=== PATIENT | male | born 1970 | race Caucasian/White ===

== ENCOUNTER → 2019-01-12 14:04 | Outpatient (CLI) | payer OTHER, SELFPAY ==
[2019-01-12 13:15] VITALS: BMI 28.9
--- NOTE | 2019-01-12 14:09 | RAD_ITS ---
STUDY: X-RAY - RIGHT KNEE REASON FOR EXAM: Male, 48 years old. TECHNIQUE: view(s) of the knee. COMPARISON: None. FINDINGS: Normal visualized distal femur. Normal visualized proximal tibia and fibula. Normal proximal tibiofibular articulation. Normal medial femorotibial compartment. Normal lateral femorotibial compartment. Normal patellofemoral articulation. The soft tissue structures are unremarkable. RAD/Knee 4 or More Views IMPRESSION: Normal x-ray examination of the knee. Electronically Signed: Ciro Nelson, at 15:58 EDT Tel , Service support ,
== END ==
PROVIDERS: Family Provider Internal Medicine; PCP Internal Medicine; Referring Provider Nurse Practitioner Family; Visit Provider Nurse Practitioner Family
DX: M25.561 Pain in right knee (principal)
CPT/HCPCS: 73564

== ENCOUNTER → 2019-04-21 11:40 | Outpatient (CLI) | payer OTHER, SELFPAY ==
[2019-04-21 11:15] VITALS: BMI 28.9
[2019-04-21 14:03] LABS: Absolute Lymphocyte Count 1.96 X10^3/uL (0.83-4.51); Absolute Neutrophil Count 4.6 X10^3/uL (2.0-7.7); Basophil# 0.04 X10^3/uL; Basophil% 0.5 % (0-1); Eosinophil# 0.08 X10^3/uL; Eosinophils% 1.1 % (0-5); Hematocrit 46.3 % (40-54); Hemoglobin 16.1 g/dL (13.0-16.5); Lymphocyte # 1.96 X10^3/ul (4.0); Lymphocyte % 26.3 % (19-41); Mean Corp Hgb Conc 34.8 g/dL (32-36); Mean Corpuscular Hgb 32.6 pg (27.0-32.0); Mean Corpuscular Volume 93.7 fL (80-94); Mean Platelet Vol. 9.7 fl (6.2-12.0); Monocyte# 0.76 X10^3/uL; Monocyte% 10.2 % (0-10); NRBC Flagged by Analyzer 0 % (0-5); Neutrophil % 61.6 % (47-70); Platelet Count 341 K/mm3 (150-450); RBC Distribution Width CV 12.6 % (11.6-14.6); RBC Distribution Width SD 43.5 fl (35.1-43.9); Red Blood Count 4.94 M/mm3 (4.6-6.2); White Blood Count 7.5 K/mm3 (4.4-11.0)
[2019-04-21 14:23] LABS: ALB/GLOB Ratio 1.2 RATIO (0.9-2.4); AST(SGOT) 30 U/L (15-37); Alanine Aminotransfer ALT/SGPT 43 U/L (16-61); Albumin, Serum 4.1 g/dL (3.2-5.0); Alkaline Phosphatase 70 U/L (45-117); Anion Gap 8 (5-15); BUN 8 mg/dL (7-18); BUN/Creat Ratio 9.4 RATIO (10-20); Calcium,Total 9.3 mg/dL (8.5-10.1); Chloride 104 mmol/L (98-107); Cholesterol 241 mg/dL (200); Creatinine, Serum 0.85 mg/dL (0.70-1.30); EST Glomerular Filtration Rate 103 mL/min (>60); Est Glom Filt Rate - Afr Amer 124 mL/min (>60); Globulin 3.3 g/dL (2.2-4.2); Glucose 105 mg/dL (74-106); High Density Lipoprotein 29 mg/dL; Protein, Total 7.4 g/dL (6.4-8.2); Sodium Level 140 mmol/L (136-145); Triglycerides 737 mg/dL
== END ==
PROVIDERS: Family Provider Internal Medicine; PCP Internal Medicine; Visit Provider Internal Medicine
DX: E78.5 Hyperlipidemia, unspecified (principal); I10 Essential (primary) hypertension
CPT/HCPCS: 36415; 80053; 80061; 85025

== ENCOUNTER → 2019-08-09 10:23 | Outpatient (CLI) | payer OTHER, SELFPAY ==
[2019-07-26 15:41] VITALS: BMI 28.9
[2019-08-09 12:38] LABS: AST(SGOT) 24 U/L (15-37); Alanine Aminotransfer ALT/SGPT 40 U/L (16-61); Albumin, Serum 3.9 g/dL (3.2-5.0); Alkaline Phosphatase 78 U/L (45-117); Anion Gap 7 (5-15); BUN 14 mg/dL (7-18); Calcium,Total 9.6 mg/dL (8.5-10.1); Chloride 109 mmol/L (98-107); Cholesterol 200 mg/dL (200); EST Glomerular Filtration Rate 85 mL/min (>60); Est Glom Filt Rate - Afr Amer 103 mL/min (>60); Globulin 3.8 g/dL (2.2-4.2); Glucose 108 mg/dL (74-106); High Density Lipoprotein 34 mg/dL; Potassium 3.6 mmol/L (3.5-5.1); Protein, Total 7.7 g/dL (6.4-8.2); Sodium Level 143 mmol/L (136-145); Thyroid Stim Hormone (TSH) 2.27 uIU/mL (0.358-3.74); Triglycerides 408 mg/dL
== END ==
PROVIDERS: PCP Internal Medicine; Visit Provider Nurse Practitioner Family
DX: I10 Essential (primary) hypertension (principal); E78.00 Pure hypercholesterolemia, unspecified; E78.1 Pure hyperglyceridemia; F41.1 Generalized anxiety disorder
CPT/HCPCS: 36415; 80053; 80061; 84443

== ENCOUNTER → 2020-03-28 11:29 | Outpatient (CLI) | payer OTHER, SELFPAY ==
[2020-03-28 10:52] VITALS: BMI 28.9
[2020-03-28 15:42] LABS: Hemoglobin A1c 5.3 % (3.8-5.6)
[2020-03-28 16:04] LABS: ALB/GLOB Ratio 1.1 RATIO (0.9-2.4); AST(SGOT) 44 U/L (15-37); Alanine Aminotransfer ALT/SGPT 38 U/L (16-61); Albumin, Serum 4.2 g/dL (3.2-5.0); Alkaline Phosphatase 79 U/L (45-117); Anion Gap 7 (5-15); BUN 11 mg/dL (7-18); BUN/Creat Ratio 10.2 RATIO (10-20); Calcium,Total 9.6 mg/dL (8.5-10.1); Chloride 100 mmol/L (98-107); Cholesterol 195 mg/dL (200); Creatinine, Serum 1.08 mg/dL (0.70-1.30); EST Glomerular Filtration Rate 77 mL/min (>60); Est Glom Filt Rate - Afr Amer 94 mL/min (>60); Globulin 3.9 g/dL (2.2-4.2); Glucose 94 mg/dL (74-106); High Density Lipoprotein 37 mg/dL; Potassium 3.7 mmol/L (3.5-5.1); Protein, Total 8.1 g/dL (6.4-8.2); Sodium Level 137 mmol/L (136-145); T4 Free Direct 1.07 ng/dL (0.76-1.46); Thyroid Stim Hormone (TSH) 1.64 uIU/mL (0.358-3.74); Triglycerides 530 mg/dL
== END ==
PROVIDERS: PCP Internal Medicine; Referring Provider Nurse Practitioner Family; Visit Provider Nurse Practitioner Family
DX: E78.5 Hyperlipidemia, unspecified (principal); R63.5 Abnormal weight gain
CPT/HCPCS: 36415; 80053; 80061; 83036; 84439; 84443

== ENCOUNTER → 2020-06-27 10:57 | Outpatient (CLI) | payer OTHER, SELFPAY ==
[2020-06-27 10:42] VITALS: BMI 26.7
[2020-06-27 13:07] LABS: Cholesterol 98 mg/dL (200); High Density Lipoprotein 28 mg/dL; Triglycerides 429 mg/dL
== END ==
PROVIDERS: PCP Internal Medicine; Referring Provider Nurse Practitioner Family; Visit Provider Nurse Practitioner Family
DX: E78.5 Hyperlipidemia, unspecified (principal)
CPT/HCPCS: 36415; 80061

== ENCOUNTER → 2021-02-26 13:35 | Outpatient (CLI) | payer OTHER, SELFPAY ==
[2021-01-10 11:08] VITALS: BMI 27.6
[2021-02-26 15:15] LABS: Absolute Lymphocyte Count 2.17 X10^3/uL (0.83-4.51); Absolute Neutrophil Count 5.7 X10^3/uL (2.0-7.7); Basophil# 0.05 X10^3/uL; Basophil% 0.5 % (0-1); Eosinophil# 0.11 X10^3/uL; Eosinophils% 1.2 % (0-5); Hematocrit 39.7 % (40-54); Hemoglobin 13.9 g/dL (13.0-16.5); Lymphocyte # 2.17 X10^3/ul (0.83-4.51); Lymphocyte % 23.3 % (19-41); Mean Corpuscular Hgb 32.1 pg (27.0-32.0); Mean Corpuscular Volume 91.7 fL (80-94); Mean Platelet Vol. 9.6 fl (6.2-12.0); Monocyte# 1.24 X10^3/uL; Monocyte% 13.3 % (0-10); NRBC Flagged by Analyzer 0 % (0-5); Neutrophil # 5.66 X10^3/uL (2.7-7.7); Neutrophil % 60.7 % (47-70); Platelet Count 385 K/mm3 (150-450); RBC Distribution Width CV 11.9 % (11.6-14.6); RBC Distribution Width SD 39.8 fl (35.1-43.9); Red Blood Count 4.33 M/mm3 (4.6-6.2); White Blood Count 9.3 K/mm3 (4.4-11.0)
[2021-02-26 15:51] LABS: ALB/GLOB Ratio 1.1 RATIO (0.9-2.4); AST(SGOT) 30 U/L (15-37); Alanine Aminotransfer ALT/SGPT 32 U/L (16-61); Albumin, Serum 4.1 g/dL (3.2-5.0); Alkaline Phosphatase 45 U/L (45-117); Anion Gap 5 (5-15); BUN 18 mg/dL (7-18); BUN/Creat Ratio 9.9 RATIO (10-20); Calcium,Total 9.6 mg/dL (8.5-10.1); Chloride 98 mmol/L (98-107); Cholesterol 185 mg/dL (200); Creatinine, Serum 1.81 mg/dL (0.70-1.30); EST Glomerular Filtration Rate 43 mL/min (>60); Est Glom Filt Rate - Afr Amer 51 mL/min (>60); Globulin 3.9 g/dL (2.2-4.2); Glucose 97 mg/dL (74-106); High Density Lipoprotein 30 mg/dL; Potassium 3.7 mmol/L (3.5-5.1); Sodium Level 135 mmol/L (136-145); Thyroid Stim Hormone (TSH) 1.52 uIU/mL (0.358-3.74); Triglycerides 525 mg/dL
[2021-03-06 12:08] LABS: Testosterone, Free 12.86 ng/dL (5.00-21.00)
[2021-03-07 12:49] LABS: Testosterone, % Free 2.63 % (1.50-4.20); Testosterone, Total 489 ng/dL (264-916)
== END ==
PROVIDERS: PCP Internal Medicine; Referring Provider Nurse Practitioner Family; Visit Provider Nurse Practitioner Family
DX: I10 Essential (primary) hypertension (principal); E78.00 Pure hypercholesterolemia, unspecified; M10.9 Gout, unspecified; F41.1 Generalized anxiety disorder; R79.89 Other specified abnormal findings of blood chemistry
CPT/HCPCS: 36415; 80053; 80061; 84402; 84403; 84443; 85025

== ENCOUNTER 2022-04-02 12:35 | Inpatient (IN) | payer OTHER, SELFPAY ==
[2022-04-02] VITALS (30 sets, daily range): BP systolic 64–140; BP diastolic 13–106; PULSE 20–71; RESP 14–31; TEMP 35.4–36; O2SAT 82–98; BMI 30.6; BMI 30.1
[2022-04-02] MEDS: Atropine Sulfate 1 MG/10 ML Syringe IV (12:40)
--- NOTE | 2022-04-02 12:43 | ED.RN ---
Addendum entered by Kimberli Gross 04/02/22 14:10: 1242 1MG EPINEPHRINE IVP GIVEN BY Gianna ASHER RN THROUGH LEFT WRIST IV. Original Note: PT ARRIVES TO ED WITH BRADYCARDIA IN THE 30'S PER EMS. PT MOVED TO BED. PLACED ON FIELD OPERATIONS TECHNICIAN AND OXYGEN VIA NASAL CANNULA. 1240 20g IV PLACED IN LEFT WRIST. 1MG ATROPINE GIVEN PER S. LISA ONTIVEROS. DR. GOINS AT BEDSIDE. CALLS FOR 1MG EPI IV. EPI GIVEN AT 1242 THROUGH LEFT WRIST BY Gianna ASHER RN. HR IMPROVED TO 59. PT A+OX4. PT C/O DIZZINESS AND LIGHTHEADEDNESS. 20G IV INSERTED BY Jarvis WESLEY IN RIGHT WRIST. BLOOD DRAWN. EKG ESTABLISHED.
--- NOTE | 2022-04-02 12:44 | EKG12_ITS ---
Test Reason : Blood Pressure : / mmHG Vent. Rate : 041 BPM Atrial Rate : 041 BPM P-R Int : 000 ms QRS Dur : 120 ms QT Int : 492 ms P-R-T Axes : 000 067 013 degrees QTc Int : 405 ms Complete heart block 3rd degree Right bundle branch block Abnormal ECG Confirmed by STEPHANIE SAWYER, MARU ([id number]), editor in chief ISADORA MUNOZ ([id number]) on 04/04/2022 9:50:31 AM Referred By: Confirmed By:MARU BROWN MD
--- NOTE | 2022-04-02 12:54 | EKG12_ITS ---
Test Reason : Blood Pressure : / mmHG Vent. Rate : 020 BPM Atrial Rate : 000 BPM P-R Int : 000 ms QRS Dur : 122 ms QT Int : 604 ms P-R-T Axes : 000 059 022 degrees QTc Int : 348 ms Idioventricular rhythm Right bundle branch block Abnormal ECG Confirmed by STEPHANIE SAWYER, MARU ([id number]), acquisition editor ISADORA MUNOZ ([id number]) on 04/04/2022 9:48:11 AM Referred By: Confirmed By:MARU BROWN MD
--- NOTE | 2022-04-02 12:57 | NURSING ---
NO OLD EKGS
--- NOTE | 2022-04-02 13:00 | RAD_ITS ---
STUDY: X-RAY CHEST REASON FOR EXAM: Male, 51 years old. Chest pain. Dizziness and lethargy. TECHNIQUE: Single AP portable view of the chest. COMPARISON: None. FINDINGS: EKG electrodes are seen. Electronic pads are seen overlying the right hemithorax. The lungs are clear and expanded. There is no demonstrated pleural abnormality. There is borderline cardiomegaly. Normal mediastinum and yosvany. Normal visualized pulmonary arteries. Normal visualized aortic arch and descending thoracic aorta. Normal visualized thoracic spine. Normal visualized ribs, clavicles, and shoulders. There is no demonstrated abnormality of the visualized soft tissue structures of the upper abdomen. RAD/Chest 1 View (Portable) IMPRESSION: Borderline cardiomegaly. The lungs are clear. Electronically Signed: Kevin Ledesma MD at 13:17 EDT ,
--- NOTE | 2022-04-02 13:08 | ED.RN ---
DR. BROWN AT BEDSIDE CALLS FOR DOPAMINE INFUSION, AND TRANSCUTANEOUS PACING. MONTOR ATTACHED TO PT CHEST ON ARRIVAL TO ED. RATE AT 60 BPM. NO CAPTURE AT 10 MILLIAMPS, DOPAMINE INFUSION INITIATED AT 1311AT 5MCG.
[2022-04-02] MEDS: DOPamine IV 800 MG/250 ML IV.SOLN. 8.8 MG CONT INF (13:11)
[2022-04-02] MEDS: fentaNYL 100 MCG/2 ML Ampul 50 MCG IV (13:17)
--- NOTE | 2022-04-02 13:19 | ED.RN ---
PT AT 25MILLIAMPS TRANSCUTANEOUS PACING WITH CAPTURE. HR 59
--- NOTE | 2022-04-02 13:22 | NURSING ---
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
--- NOTE | 2022-04-02 13:30 | NURSING ---
ICU 2
[2022-04-02 13:44] LABS: Absolute Lymphocyte Count 4.47 X10^3/uL (0.83-4.51); Absolute Neutrophil Count 9.3 X10^3/uL (2.0-7.7); Basophil% 0.6 % (0-1); Eosinophil# 0.15 X10^3/uL; Hematocrit 44.6 % (40-54); Hemoglobin 15.7 g/dL (13.0-16.5); Lymphocyte # 4.47 X10^3/ul (0.83-4.51); Lymphocyte % 28.9 % (19-41); Mean Corp Hgb Conc 35.2 g/dL (32-36); Mean Corpuscular Hgb 33.6 pg (27.0-32.0); Mean Corpuscular Volume 95.5 fL (80-94); Mean Platelet Vol. 10.2 fl (6.2-12.0); Monocyte# 1.38 X10^3/uL; Monocyte% 8.9 % (0-10); NRBC Flagged by Analyzer 0 % (0-5); Neutrophil # 9.31 X10^3/uL (2.7-7.7); Neutrophil % 60.1 % (47-70); Platelet Count 348 K/mm3 (150-450); RBC Distribution Width CV 13.2 % (11.6-14.6); RBC Distribution Width SD 46.5 fl (35.1-43.9); Red Blood Count 4.67 M/mm3 (4.6-6.2); White Blood Count 15.5 K/mm3 (4.4-11.0)
--- NOTE | 2022-04-02 13:45 | ED.RN ---
REPORTS CALLED TO ICU. REPORT GIVEN TO LISA ROSEN.
--- NOTE | 2022-04-02 13:47 | EX.ED.DYSGE1 ---
HPI History of Present Illness Chief Complaint: Dizziness Narrative Narrative: Patient with past medical history of hypertension and hypercholesterolemia, vapes, presents with lightheadedness and low heart rate. Per EMS, patient may have had a syncopal episode today. Patient relates history that 45 minutes ago he felt very lightheaded and weak. He denies any chest pain or shortness of breath. EKG per EMS showed a heart rate of 21. They attempted IV access but were unable to administer atropine. They present him to the emergency department with a low heart rate. [facility] Medical History Acne Chronic low back pain Generalized anxiety disorder Gout Herniated disc High cholesterol High triglycerides History of back problems HTN (hypertension) Hypertriglyceridemia Hypogonadism Low testosterone Old torn meniscus of knee Other reactions to severe stress Other specified anxiety disorders PTSD (post-traumatic stress disorder) Home Medications clonazepam 1 mg tablet 1 mg PO DAILY PRN anxiety 07/26/19 [History Last Taken Unknown] diltiazem HCl 360 mg capsule,24 hr,extended release 360 mg PO DAILY #90 caps 03/17/22 [Rx Last Taken Unknown] fenofibrate micronized 200 mg capsule 200 mg PO QPM #90 caps 03/17/22 [Rx Last Taken Unknown] gabapentin 100 mg capsule 100 mg PO QHS PRN low back pain #30 caps 03/17/22 [Rx Last Taken Unknown] guanfacine 1 mg tablet 1 mg PO TID #90 tabs 03/17/22 [Rx Last Taken Unknown] hydrochlorothiazide 25 mg tablet 25 mg PO DAILY #90 tabs 03/17/22 [Rx Last Taken Unknown] icosapent ethyl 1 gram capsule (Vascepa) 2 g PO BID #360 caps 03/17/22 [Rx Last Taken Unknown] indomethacin 25 mg capsule 25 mg PO TID PRN Gout #60 caps 03/17/22 [Rx Last Taken Unknown] lactulose 10 gram/15 mL (15 mL) oral solution 15 ml PO DAILY PRN constipation #300 mL 03/17/22 [Rx Last Taken Unknown] lisinopril 40 mg tablet 40 mg PO BID #180 tabs 03/17/22 [Rx Last Taken Unknown] propranolol 60 mg tablet 60 mg PO BID #180 tabs 03/17/22 [Rx Last Taken Unknown] rosuvastatin 40 mg tablet 40 mg PO DAILY #90 tabs 03/17/22 [Rx Last Taken Unknown] tadalafil 5 mg tablet (Cialis) 5 mg PO DAILY PRN sexual activity #10 tabs 03/17/22 [Rx Last Taken Unknown] allopurinol 100 mg tablet 100 mg PO DAILY #90 tabs 03/27/22 [Rx Last Taken Unknown] Allergy/AdvReac Type Severity Reaction Status Date / Time No Known Allergies Allergy Unverified 04/02/22 12:36 Family History Father Alcoholism Anxiety Depression Myocardial infarction Heart disease High cholesterol Mental disorder Grandfather Alcoholism Mother Angina pectoris Grandmother Angina pectoris Surgical History H/O discectomy History of meniscectomy of left knee Testicular torsion Social History Smoking Status: Current every day smoker tobacco type: e-cigarettes how long ago did patient quit smokin years ago alcohol intake: current alcohol intake frequency: a few times a month Alcohol type: wine substance use type: does not use caffeine: No eating out: 4 or more times/week what type of physical activity do you participate in: walking and other details: hiking ROS ROS ED ROS Narrative Constitutional: No fever, no chills. HEENT: No sore throat. No neck pain. No loss of vision. No rhinorrhea. Cardiovascular: No chest pain. No palpitations. No pedal edema. Respiratory: No cough, no shortness of breath. Abdominal: No abdominal pain. No nausea. No vomiting. Genitourinary: No dysuria. No hematuria. Musculoskeletal: No myalgias. No arthralgias. Neurologic: No headaches. No dizziness. Positive lightheadedness. Generalized weakness. Skin: No rash. No change in color. Psychiatric: No depression. No anxiety. EXAM Physical Exam Narrative Exam Narrative: Afebrile. Vital signs noted. HEENT: Normocephalic. Atraumatic. PERRL, EOMI. Neck soft and supple. No point tenderness or step off. Cardiovascular: Bradycardia in the 20s. No murmurs, rubs, or gallops appreciated. Respiratory: No tachypnea. Lungs clear to auscultation bilaterally. Gastrointestinal: Abdomen soft, nontender, with normoactive bowel sounds. No rebound or guarding. Neurological: Awake. Alert. Nonfocal, nonlateralizing. Skin: No rash. No pallor. Musculoskeletal: No pedal edema. Full range of motion extremities. Const Vital Signs: 04/02/22 12:36 04/02/22 12:42 04/02/22 12:49 Temperature 96.8 F L Temperature Source Temporal Pulse Rate 30 L Respiratory Rate 14 14 Respiratory Effort Normal Non-Labored Blood Pressure 108/55 L Blood Pressure Mean 72 Pulse Ox 95 95 Oxygen Delivery Method Room Air Nasal Cannula Oxygen Flow Rate (L/min) 2 04/02/22 12:50 04/02/22 12:58 04/02/22 13:00 Temperature Temperature Source Pulse Rate 30 L 20 L Respiratory Rate 20 H 18 Respiratory Effort Blood Pressure 124/106 H 100/70 Blood Pressure Mean 112 80 Pulse Ox 96 98 97 Oxygen Delivery Method Nasal Cannula Nasal Cannula Nasal Cannula Oxygen Flow Rate (L/min) 2 2 2 04/02/22 13:06 04/02/22 13:11 04/02/22 13:18 Temperature Temperature Source Pulse Rate 43 L 59 L Respiratory Rate 24 H 25 H 16 Respiratory Effort Blood Pressure 104/89 H 83/29 L Blood Pressure Mean 94 47 Pulse Ox 98 98 Oxygen Delivery Method Nasal Cannula Nasal Cannula Oxygen Flow Rate (L/min) 99 2 04/02/22 13:20 04/02/22 13:22 Temperature Temperature Source Pulse Rate 61 59 L Respiratory Rate 20 H 20 H Respiratory Effort Blood Pressure 64/13 L 91/77 Blood Pressure Mean 30 81 Pulse Ox 90 98 Oxygen Delivery Method Nasal Cannula Oxygen Flow Rate (L/min) 2 MDM MDM MDM Narrative Medical decision making narrative: Pacer pads were placed. Patient was administered atropine per RN after IV access was obtained. He was maintaining a blood pressure at 109 systolic. He was administered 1 dose of epinephrine intravenously for his symptomatic bradycardia, with a temporary resultant heart rate in the 40s. On his EKG, interpreted by myself, he appeared to be in third-degree heart block then began with perhaps a junctional couplet rhythm. I discussed the patient with Dr. Samuel who would like to take the patient to the catheterization lab for temporary cardiac pacemaker. He requested that labs be drawn along with chest x-ray. I interpreted his chest x-ray and see no evidence of pneumothorax or pneumonia. RN reports that Dr. Samuel started external pacing, so the patient was administered 50 mcg of fentanyl intravenously and taken to the catheterization lab. I then discussed the patient with Dr. Baez who will admit the patient to the ICU. I notified Dr. Polanco with intensive care. Disposition is admit in guarded condition. Critical care time 31 minutes. Lab Data Attestation: I reviewed the patient's lab results. Labs: Laboratory Results - last 24 hr 04/02/22 12:40 WBC 15.5 H RBC 4.67 Hgb 15.7 Hct 44.6 MCV 95.5 H MCH 33.6 H MCHC 35.2 RDW Std Deviation 46.5 H RDW Coeff of Albert 13.2 Plt Count 348 MPV 10.2 Immature Gran % (Auto) 0.500 Neut % (Auto) 60.1 Lymph % (Auto) 28.9 Emmet % (Auto) 8.9 Eos % (Auto) 1.0 Baso % (Auto) 0.6 Absolute Neuts (auto) 9.3 H Absolute Lymphs (auto) 4.47 Nucleated RBC % 0 Radiography Diagnostic Testing: Clinical Impression(s) from Imaging Studies Chest X-Ray 04/02/22 13:00 IMPRESSION: Borderline cardiomegaly. The lungs are clear. Electronically Signed: Kevin Ledesma MD at 13:17 EDT Reading Location ID and State: [address] [place] [address] , Service support , Critical Care Time Critical Care Time: Yes Critical care time (excluding procedures): 30-74 minutes (31), Including time spent:, Discussing w/Patient &/or Family/Professor Of Chemical Engineering, Discussing w/Consultants, Arranging Admission or Transfer and Performing Direct Patient Care at Bedside Discharge Plan Dx/Rx/DC Orders Clinical Impression: Bradycardia, Heart block, HTN (hypertension), High cholesterol Disposition Disposition: [facility] Care [facility]
--- NOTE | 2022-04-02 13:50 | ECHOL_ITS ---
Reason For Study: Arrhythmia Procedure This was a limited 2D transthoracic echocardiogram. Exam performed portable in patient room. Left Ventricle Normal LV size. Left ventricular systolic function is normal. The estimated ejection fraction is 60 %. No regional wall motion abnormalities noted. Right Ventricle Normal RV size. ICD or pacer leads identified within the right ventricle. Normal systolic function. Great Vessels Normal aortic root. The pulmonary artery is normal size. Pericardium/Pleural No pericardial effusion. MMode/2D Measurements & Calculations LVIDd: 5.0 cm IVSd: 1.2 cm LVIDs: 2.9 cm LVPWd: 1.1 cm FS: 42.3 % ECHO/Echo, Limited Study Interpretation Summary Normal LV size. Left ventricular systolic function is normal. The estimated ejection fraction is 60 %. No pericardial effusion. 3 sequential echos perfomred with no change in status Ordering Physician: Jonathan Samuel Referring Physician: Gunjan Romano Performed By: Do Pugh, STANLEY, RVT
--- NOTE | 2022-04-02 13:52 | PCM.CONS.C ---
Assessment & Plan Assessment/Plan (1) High-grade atrioventricular block: PLAN: Patient presents with high-grade AV block with the EKG demonstrating periods of asystole. The plan at this time would be to support him on the transvenous pacemaker and discontinue his antihypertensive medication. The hope is that this is due to the interaction between his long-acting diltiazem as well as his beta-valerie. Electrolytes would also be obtained as well as cardiac enzymes. Depending on the findings further recommendations will then be made as to the need for permanent pacemaker placement. His potassium was noted to be elevated. I would therefore recommend that we give him an amp of calcium gluconate or calcium chloride An amp of D50 followed by 10 units of regular insulin (2) HTN (hypertension): QUALIFIERS: Hypertension type: essential hypertension Qualified Code(s): I10 - Essential (primary) hypertension PLAN: He does have a history of hypertension we will continue to monitor the above. Does appear that his medication will need to be changed around. Bedside echocardiogram demonstrated preserved left ventricular systolic function and no evidence of pericardial effusion. (3) High cholesterol: PLAN: He does have a history of hyperlipidemia. HPI Consult Data Date of Consult: 04/02/22 HPI Narrative HPI Narrative: KARUNA QUINTANILLA, is a 51 M who presents to the emergency room for being bad. He said that he felt presyncopal all morning and could not stand up. He has a history of hypertension and has been on antihypertensive therapy. He denies any chest pain no paroxysmal nocturnal dyspnea or pedal edema he did have some difficulty breathing. In the emergency room he was noted to be in complete heart block with intermittent periods of asystole. I was called emergently to see him. We put him on the temporary transcutaneous pacemaker as well as started him on 10 mics of dobutamine and then brought him emergently to the cardiac catheterization lab. He was noted to be conscious throughout. A temporary transvenous pacemaker was placed. A bedside echocardiogram was performed. [facility] Medical History Acne Chronic low back pain Generalized anxiety disorder Gout Herniated disc High cholesterol High triglycerides History of back problems HTN (hypertension) Hypertriglyceridemia Hypogonadism Low testosterone Old torn meniscus of knee Other reactions to severe stress Other specified anxiety disorders PTSD (post-traumatic stress disorder) Home Medications clonazepam 1 mg tablet 1 mg PO DAILY PRN anxiety 01/07/20 [History Last Taken Unknown] diltiazem HCl 360 mg capsule,24 hr,extended release 360 mg PO DAILY #90 caps 03/17/22 [Rx Last Taken Unknown] fenofibrate micronized 200 mg capsule 200 mg PO QPM #90 caps 03/17/22 [Rx Last Taken Unknown] gabapentin 100 mg capsule 100 mg PO QHS PRN low back pain #30 caps 03/17/22 [Rx Last Taken Unknown] guanfacine 1 mg tablet 1 mg PO TID #90 tabs 03/17/22 [Rx Last Taken Unknown] hydrochlorothiazide 25 mg tablet 25 mg PO DAILY #90 tabs 03/17/22 [Rx Last Taken Unknown] icosapent ethyl 1 gram capsule (Vascepa) 2 g PO BID #360 caps 03/17/22 [Rx Last Taken Unknown] indomethacin 25 mg capsule 25 mg PO TID PRN Gout #60 caps 03/17/22 [Rx Last Taken Unknown] lactulose 10 gram/15 mL (15 mL) oral solution 15 ml PO DAILY PRN constipation #300 mL 03/17/22 [Rx Last Taken Unknown] lisinopril 40 mg tablet 40 mg PO BID #180 tabs 03/17/22 [Rx Last Taken Unknown] propranolol 60 mg tablet 60 mg PO BID #180 tabs 03/17/22 [Rx Last Taken Unknown] rosuvastatin 40 mg tablet 40 mg PO DAILY #90 tabs 03/17/22 [Rx Last Taken Unknown] tadalafil 5 mg tablet (Cialis) 5 mg PO DAILY PRN sexual activity #10 tabs 03/17/22 [Rx Last Taken Unknown] allopurinol 100 mg tablet 100 mg PO DAILY #90 tabs 03/27/22 [Rx Last Taken Unknown] Allergy/AdvReac Type Severity Reaction Status Date / Time No Known Allergies Allergy Unverified 04/02/22 12:36 Family History Father Alcoholism Anxiety Depression Myocardial infarction Heart disease High cholesterol Mental disorder Grandfather Alcoholism Mother Angina pectoris Grandmother Angina pectoris Surgical History H/O discectomy History of meniscectomy of left knee Testicular torsion Social History Smoking Status: Current every day smoker tobacco type: e-cigarettes how long ago did patient quit smokin years ago alcohol intake: current alcohol intake frequency: a few times a month Alcohol type: wine substance use type: does not use caffeine: No eating out: 4 or more times/week what type of physical activity do you participate in: walking and other details: hiking ROS Constitutional Constitutional: Denies fever(s) or weight loss Eyes Eyes: Reports systems reviewed and no addt'l complaints, except as documented ENT HEENT: Reports systems reviewed and no addt'l complaints, except as documented Cardiovascular Cardiovascular: Reports dyspnea at rest; Denies chest pain at rest, chest pain with activity, dyspnea on exertion, edema, palpitations or paroxysmal nocturnal dyspnea Respiratory/Chest Respiratory/Chest: Denies dyspnea on exertion, productive cough, shortness of breath at rest or shortness of breath with exertion Gastrointestinal Gastrointestinal: Denies change in bowel habits, nausea, vomiting or weight changes Genitourinary Genitourinary: Denies difficulty urinating Musculoskeletal Musculoskeletal: Denies joint stiffness or muscle weakness Integumentary Integumentary: Denies lesions Neurologic Neurologic: Reports dizziness and syncope Psychiatric Psychiatric: Denies anxiety Endocrine Endocrinology: Denies excessive sweating or fatigue Hematologic/Lymphatic Hematologic/Lymphatic: Denies anemia Allergic/Immunologic Allergic/Immunologic: Denies seasonal rhinorrhea Physical Exam Const alert, oriented x3 and no apparent distress General Appearance: cooperative HEENT hearing grossly normal bilaterally Head and Scalp: atraumatic Eyes EOMs intact bilaterally Neck General: normal visual inspection Chest inspection of chest normal and palpation of chest normal Resp normal respiratory effort Auscultation: clear to auscultation bilaterally Cardio regular rate, regular rhythm, S1 normal heart sound and S2 normal heart sound Jugular Venous Distention: JVD GI normal to inspection, nondistended, normoactive bowel sounds Extremity normal capillary refill and no pedal edema Peripheral Pulses: Yes pulses 2+ throughout and femoral pulses present Skin no rashes or lesions noted Neuro oriented x3 and CN's II-XII intact bilaterally Psych Appearance: grossly normal and appropriate Risk Stratification Risk Stratification Applicable: No Objective Data Vital Signs: Vital Signs Temp Pulse Resp BP Pulse Ox O2 Del Method O2 Flow Rate 96.8 F L 61 14 91/77 98 Nasal Cannula 2 04/02/22 13:34 09/14/22 13:34 04/02/22 13:34 04/02/22 13:34 04/02/22 13:34 04/02/22 13:34 04/02/22 13:34 Oxygen Flow Rate (L/min) 2 Oxygen Delivery Method Nasal Cannula Weight: 207 lb 3.752 oz Body Mass Index (BMI) 30.6 Intake & Output: Intake and Output for Last 24 Hours 03/31/22 04/01/22 04/02/22 23:59 23:59 23:59 Intake Total 1.61 / 1.61 Balance 1.61 / 1.61 Lab / Micro Data Result Diagrams: 04/02/22 12:40 04/02/22 12:40 Labs: Laboratory Results - last 24 hr 04/02/22 12:40: WBC 15.5 H, RBC 4.67, Hgb 15.7, Hct 44.6, MCV 95.5 H, MCH 33.6 H, MCHC 35.2, RDW Std Deviation 46.5 H, RDW Coeff of Albert 13.2, Plt Count 348, MPV 10.2, Immature Gran % (Auto) 0.500, Neut % (Auto) 60.1, Lymph % (Auto) 28.9, Hardy % (Auto) 8.9, Eos % (Auto) 1.0, Baso % (Auto) 0.6, Absolute Neuts (auto) 9.3 H, Absolute Lymphs (auto) 4.47, Nucleated RBC % 0 Cardiology Labs/Tests 04/02/22 12:40: WBC 15.5 H, RBC 4.67, Hgb 15.7, Hct 44.6, MCV 95.5 H, MCH 33.6 H, MCHC 35.2, Plt Count 348, MPV 10.2, Immature Gran % (Auto) 0.500, Neut % (Auto) 60.1, Lymph % (Auto) 28.9, Hardy % (Auto) 8.9, Eos % (Auto) 1.0, Baso % (Auto) 0.6, Absolute Neuts (auto) 9.3 H, Nucleated RBC % 0 Rhythm: EKG: ECHO: Stress Test: Cardiac Cath: PCI: CT Surgery: Holter monitor: EPS: PPM: CXR: Chest CT Scan: Radiography Diagnostic Testing: Radiology Impression Chest X-Ray 04/02/22 13:00 IMPRESSION: Borderline cardiomegaly. The lungs are clear. Electronically Signed: Kevin Ledesma MD at 13:17 EDT ,
[2022-04-02 14:00] LABS: Anion Gap 15 (5-15); BUN 13 mg/dL (7-18); BUN/Creat Ratio 6.9 RATIO (10-20); Calcium,Total 9.5 mg/dL (8.5-10.1); Chloride 105 mmol/L (98-107); Creatinine, Serum 1.89 mg/dL (0.70-1.30); EST Glomerular Filtration Rate 40 mL/min (>60); Est Glom Filt Rate - Afr Amer 49 mL/min (>60); Estimated Creatinine Clearance 46.76 ml/min; Glucose 306 mg/dL (74-106); Potassium 6.3 mmol/L (3.5-5.1); Sodium Level 136 mmol/L (136-145); Troponin-I HS (w/2H Reflex) 7 pg/mL (3.0-78.0)
--- NOTE | 2022-04-02 14:09 | OP.PCM_ITS ---
Problems Associated Problem List Diagnoses (1) High-grade atrioventricular block: Operative Report Date of Procedure: 04/02/22 Placement of a temporary transvenous pacemaker wire. Indication complete heart block. The patient was brought to the cardiac catheterization lab under emergency conditions. Emergency informed consent was obtained. The right groin was prepped and draped in the usual sterile manner. It was anesthetized with 1% lidocaine. A 7 [place] venous sheath was then placed. A temporary balloontipped bipolar pacemaker catheter was then advanced under fluoroscopic control to the right ventricular apex. Appropriate position was noted. The temporary transcutaneous pacemaker was turned off. The pacemaker was then set to the following settings. Rate of 50 bpm Stimulation threshold of 3 V. Capture threshold of 2 mV The sheath was sutured in place. Patient tolerated the procedure well. Transthoracic echocardiogram demonstrated preserved function and no evidence of pericardial effusion.
[2022-04-02 15:28] LABS: Reflex Troponin-HS? (from REC) Y
[2022-04-02] MEDS: fentaNYL 100 MCG/2 ML Ampul 25 MCG IV (15:36)
--- NOTE | 2022-04-02 15:47 | EKG12_ITS ---
Test Reason : CHEST PAIN Blood Pressure : / mmHG Vent. Rate : 067 BPM Atrial Rate : 073 BPM P-R Int : 000 ms QRS Dur : 098 ms QT Int : 416 ms P-R-T Axes : 000 059 -12 degrees QTc Int : 439 ms Ventricular paced and Premature supraventricular complexes Nonspecific ST abnormality Abnormal ECG When compared with ECG of 02-APR-2022 12:50, MANUAL COMPARISON REQUIRED, DATA IS UNCONFIRMED Confirmed by STEPHANIE SAWYER, MARU ([id number]), editor farm journal ISADORA MUNOZ ([id number]) on 04/04/2022 12:45:00 PM Referred By: STEPHANIE Confirmed By:MARU BROWN MD
[2022-04-02] MEDS: Ondansetron 4 MG/2 ML Vial IV (16:04)
[2022-04-02 16:09] LABS: Troponin-I HS 19 pg/mL (3.0-78.0)
[2022-04-02 16:13] LABS: Anion Gap 9 (5-15); BUN 15 mg/dL (7-18); BUN/Creat Ratio 7.2 RATIO (10-20); Calcium,Total 10.6 mg/dL (8.5-10.1); Chloride 110 mmol/L (98-107); Creatinine, Serum 2.07 mg/dL (0.70-1.30); EST Glomerular Filtration Rate 36 mL/min (>60); Est Glom Filt Rate - Afr Amer 44 mL/min (>60); Glucose 109 mg/dL (74-106); Sodium Level 139 mmol/L (136-145)
[2022-04-02] MEDS: 0.9% Normal Saline 1,000 ML 100 ML IV (18:22)
--- NOTE | 2022-04-02 21:06 | HP.PCM.HOS_ITS ---
HPI - General General Date of Admission: 04/02/22 Date of Service: 04/02/22 Chief Complaint: Lightheadedness, extreme weakness HPI Narrative KARUNA QUINTANILLA, is a 51 M who presents to the emergency room at [facility] with complaints of lightheadedness and weakness today, he states this was very severe and he could not ambulate. Patient denied any chest pain or shortness of breath, squad was called and an EKG was obtained by the squad which showed a heart rate of 21. Work-up in the emergency room included an EKG which showed a high-grade AV block with periods of asystole, patient's blood pressure is noted to be 109 systolic, he was administered 1 dose of epinephrine and he was administered atropine. Temporarily the patient's heart rate elevated into the 40s, cardiology was contacted and the patient was taken to the cardiac Testing Lead and underwent implantation of a temporary pacemaker. It was noted that the patient was on several medications as an outpatient which would cause bradycardia (Tenex, Cardizem CD, and propranolol). Patient was admitted to ICU for further care, case was discussed with cardiology. [facility] Medical History Acne Chronic low back pain Generalized anxiety disorder Gout Herniated disc High cholesterol High triglycerides History of back problems HTN (hypertension) Hypertriglyceridemia Hypogonadism Low testosterone Old torn meniscus of knee Other reactions to severe stress Other specified anxiety disorders PTSD (post-traumatic stress disorder) Home Medications clonazepam 1 mg tablet 0.5 mg PO BID anxiety 07/26/19 [History Last Taken Unknown] gabapentin 100 mg capsule 100 mg PO QHS PRN low back pain #30 caps 03/17/22 [Rx Last Taken Unknown] indomethacin 25 mg capsule 25 mg PO TID PRN Gout #60 caps 03/17/22 [Rx Last Taken Unknown] lisinopril 40 mg tablet 40 mg PO BID #180 tabs 03/17/22 [Rx Last Taken Unknown] rosuvastatin 40 mg tablet 40 mg PO DAILY #90 tabs 03/17/22 [Rx Last Taken Unknown] allopurinol 100 mg tablet 100 mg PO DAILY #90 tabs 03/27/22 [Rx Last Taken Unknown] diltiazem HCl 360 mg capsule,24 hr,extended release 360 mg PO DAILY heart 04/02/22 [History Last Taken Unknown] guanfacine 1 mg tablet 1 mg PO TID blood pressure 04/02/22 [History Last Taken Unknown] hydrochlorothiazide 25 mg tablet 25 mg PO DAILY blood pressure 04/02/22 [History Last Taken Unknown] hydroxyzine pamoate 25 mg capsule 25 - 50 mg PO QHS PRN sleep aid 04/02/22 [History Last Taken Unknown] propranolol 60 mg tablet 60 mg PO BID blood pressure 04/02/22 [History Last Taken Unknown] Allergy/AdvReac Type Severity Reaction Status Date / Time No Known Allergies Allergy Unverified 04/02/22 12:36 Family History Father Alcoholism Anxiety Depression Myocardial infarction Heart disease High cholesterol Mental disorder Grandfather Alcoholism Mother Angina pectoris Grandmother Angina pectoris Surgical History H/O discectomy History of meniscectomy of left knee Testicular torsion Social History Smoking Status: Current every day smoker tobacco type: e-cigarettes how long ago did patient quit smokin years ago alcohol intake: current alcohol intake frequency: a few times a month Alcohol type: wine substance use type: does not use caffeine: No eating out: 4 or more times/week what type of physical activity do you participate in: walking and other details: hiking ROS Constitutional Constitutional: Reports fatigue and weakness; Denies anorexia, change in weight, fever(s) or night sweats Eyes Eyes: Denies blurry vision, change in vision, discharge from eye(s) or eye pain ENT HEENT: Denies abnormal hearing or dysphagia Cardiovascular Cardiovascular: Reports lightheadedness; Denies chest pain, claudication, dyspnea on exertion, edema or palpitations Respiratory/Chest Respiratory/Chest: Denies cough, excessive phlegm production, hemoptysis, productive cough, shortness of breath at rest or shortness of breath with exertion Gastrointestinal Gastrointestinal: Denies abdominal pain, coffee ground emesis, constipation, diarrhea, dyspepsia, hematemesis, hematochezia, melena, nausea or vomiting Genitourinary Genitourinary: Denies dysuria, hematuria, urinary frequency, urinary hesitancy, urinary incontinence or urinary urgency Musculoskeletal Musculoskeletal: Reports back pain; Denies joint pain, joint stiffness, joint swelling, myalgias or neck pain Neurologic Neurologic: Denies abnormal gait, abnormal speech, dizziness, focal weakness, headache(s), loss of vision, numbness, other visual disturbances, paresthesias, syncope or tingling Psychiatric Psychiatric: Reports anxiety and other Details: Patient has a history of panic disorder ; Denies cognitive impairment, depression, irritability, mood swings or suicidal ideation Endocrine Endocrinology: Denies change in body appearance, cold intolerance, excessive sweating, heat intolerance, polydipsia or polyuria Hematologic/Lymphatic Hematologic/Lymphatic: Denies none, anemia, easy bleeding, easy bruising or lymphadenopathy Allergic/Immunologic Allergic/Immunologic: Denies rhinitis, urticaria, eczemia or asthma Vital Signs Vital Signs Vital Signs: 04/02/22 12:36 04/02/22 12:42 04/02/22 12:49 Temperature 96.8 F L Temperature Source Temporal Pulse Rate 30 L Pulse Strength Respiratory Rate 14 14 Respiratory Effort Normal Non-Labored Respiratory Depth Respiratory Pattern Blood Pressure 108/55 L Blood Pressure Mean 72 Blood Pressure Source Blood Pressure Position Blood Pressure Location Pulse Ox 95 95 Oxygen Delivery Method Room Air Nasal Cannula Oxygen Flow Rate (L/min) 2 04/02/22 12:50 04/02/22 12:58 04/02/22 13:00 Temperature Temperature Source Pulse Rate 30 L 20 L Pulse Strength Respiratory Rate 20 H 18 Respiratory Effort Respiratory Depth Respiratory Pattern Blood Pressure 124/106 H 100/70 Blood Pressure Mean 112 80 Blood Pressure Source Blood Pressure Position Blood Pressure Location Pulse Ox 96 98 97 Oxygen Delivery Method Nasal Cannula Nasal Cannula Nasal Cannula Oxygen Flow Rate (L/min) 2 2 2 04/02/22 13:06 04/02/22 13:11 04/02/22 13:18 Temperature Temperature Source Pulse Rate 43 L 59 L Pulse Strength Respiratory Rate 24 H 25 H 16 Respiratory Effort Respiratory Depth Respiratory Pattern Blood Pressure 104/89 H 83/29 L Blood Pressure Mean 94 47 Blood Pressure Source Blood Pressure Position Blood Pressure Location Pulse Ox 98 98 Oxygen Delivery Method Nasal Cannula Nasal Cannula Oxygen Flow Rate (L/min) 99 2 04/02/22 13:20 04/02/22 13:22 04/02/22 13:34 Temperature 96.8 F L Temperature Source Temporal Pulse Rate 61 59 L 61 Pulse Strength Respiratory Rate 20 H 20 H 14 Respiratory Effort Respiratory Depth Respiratory Pattern Blood Pressure 64/13 L 91/77 91/77 Blood Pressure Mean 30 81 81 Blood Pressure Source Blood Pressure Position Blood Pressure Location Pulse Ox 90 98 98 Oxygen Delivery Method Nasal Cannula Nasal Cannula Oxygen Flow Rate (L/min) 2 2 04/02/22 15:00 04/02/22 15:17 04/02/22 15:30 Temperature 95.7 F L 96.2 F L Temperature Source Oral Temporal Pulse Rate 62 71 63 Pulse Strength Respiratory Rate 31 H 18 23 H Respiratory Effort Respiratory Depth Respiratory Pattern Blood Pressure 100/58 L 110/52 L 101/74 Blood Pressure Mean 72 71 83 Blood Pressure Source Monitor Monitor Monitor Blood Pressure Position Supine Supine Supine Blood Pressure Location Left Arm Left Arm Left Arm Pulse Ox 82 94 94 Oxygen Delivery Method Nasal Cannula Non-Rebreather Non-Rebreather Oxygen Flow Rate (L/min) 6 15 15 04/02/22 15:45 04/02/22 16:00 04/02/22 16:30 Temperature Temperature Source Pulse Rate 69 64 58 L Pulse Strength Respiratory Rate 23 H 14 19 H Respiratory Effort Respiratory Depth Respiratory Pattern Blood Pressure 101/74 116/58 L 115/57 L Blood Pressure Mean 83 77 76 Blood Pressure Source Monitor Monitor Monitor Blood Pressure Position Supine Supine Supine Blood Pressure Location Left Arm Left Arm Left Arm Pulse Ox 89 97 90 Oxygen Delivery Method Non-Rebreather Non-Rebreather Non-Rebreather Oxygen Flow Rate (L/min) 15 15 15 04/02/22 15:19 04/02/22 17:00 04/02/22 15:00 Temperature Temperature Source Pulse Rate 71 57 L Pulse Strength Respiratory Rate 19 H Respiratory Effort Short of Breath Respiratory Depth Respiratory Pattern Tachypnea Blood Pressure 108/61 Blood Pressure Mean 76 Blood Pressure Source Monitor Blood Pressure Position Supine Blood Pressure Location Left Arm Pulse Ox 91 Oxygen Delivery Method Non-Rebreather Nasal Cannula Oxygen Flow Rate (L/min) 15 04/02/22 18:02 04/02/22 18:00 04/02/22 19:00 Temperature Temperature Source Pulse Rate 58 L 60 Pulse Strength Respiratory Rate 23 H 16 Respiratory Effort Respiratory Depth Respiratory Pattern Blood Pressure 138/69 H 125/67 H Blood Pressure Mean 92 86 Blood Pressure Source Monitor Monitor Blood Pressure Position Supine Supine Blood Pressure Location Left Arm Left Arm Pulse Ox 91 94 94 Oxygen Delivery Method High Flow High Flow High Flow Oxygen Flow Rate (L/min) 9 9 9 04/02/22 20:00 04/02/22 20:15 04/02/22 20:00 Temperature Temperature Source Pulse Rate 59 L 60 Pulse Strength Weak (1+) Respiratory Rate 21 H Respiratory Effort Respiratory Depth Respiratory Pattern Blood Pressure 138/71 H Blood Pressure Mean 93 Blood Pressure Source Monitor Blood Pressure Position Supine Blood Pressure Location Left Arm Pulse Ox 97 Oxygen Delivery Method High Flow Oxygen Flow Rate (L/min) 9 04/02/22 20:30 04/02/22 20:20 04/02/22 20:45 Temperature Temperature Source Pulse Rate 62 68 Pulse Strength Respiratory Rate Respiratory Effort Normal Non-Labored Respiratory Depth Normal Respiratory Pattern Normal Blood Pressure 140/84 H Blood Pressure Mean 102 Blood Pressure Source Monitor Blood Pressure Position Blood Pressure Location Pulse Ox Oxygen Delivery Method Nasal Cannula Oxygen Flow Rate (L/min) 5 04/02/22 21:00 Temperature 96.8 F L Temperature Source Temporal Pulse Rate 65 Pulse Strength Respiratory Rate 18 Respiratory Effort Respiratory Depth Respiratory Pattern Blood Pressure 135/76 H Blood Pressure Mean 95 Blood Pressure Source Monitor Blood Pressure Position Blood Pressure Location Pulse Ox 98 Oxygen Delivery Method Nasal Cannula Oxygen Flow Rate (L/min) 5 Weight Weight: 92.3 kg Body Mass Index (BMI) 30.1 Physical Exam Narrative At the time of my examination in the ICU, patient is no longer paced, heart rate approximately 58 Const alert, oriented x3, no apparent distress, average body habitus and healthy appearing General Appearance: cooperative, well kempt and well developed Orientation / Consciousness: awake, oriented to person, oriented to place and oriented to time HEENT normocephalic, head/scalp atraumatic, hearing grossly normal bilaterally and moist oral mucous membranes Eyes PERRL, EOMs intact bilaterally and conjunctivae normal Neck supple, no JVD, thyroid normal and no carotid bruits General: trachea midline Resp normal respiratory effort, no retractions, no use of accessory muscles and clear to auscultation bilaterally Auscultation: Negative for rales, rhonchi or wheezes Cardio regular rate, regular rhythm, S1 normal heart sound, S2 normal heart sound, no murmurs, no rub and no gallops GI normal to inspection, nondistended, normoactive bowel sounds, soft to palpation, non-tender and non-distended Extremity no clubbing, cyanosis or edema Skin no rashes or lesions noted General Skin Exam: no breakdown Neuro oriented x3, CN's II-XII intact bilaterally, moves all extremities, no focal motor deficits and no sensory deficits noted Sensorium / Orientation: awake, alert, oriented to person, oriented to place and oriented to time Speech: speech normal Psych affect normal Results Lab / Micro Data Result Diagrams: 04/02/22 12:40 04/02/22 15:35 Labs: Laboratory Results - last 24 hr 04/02/22 12:40: WBC 15.5 H, RBC 4.67, Hgb 15.7, Hct 44.6, MCV 95.5 H, MCH 33.6 H , MCHC 35.2, RDW Std Deviation 46.5 H, RDW Coeff of Albert 13.2, Plt Count 348, MPV 10.2, Immature Gran % (Auto) 0.500, Neut % (Auto) 60.1, Lymph % (Auto) 28.9, Harney % (Auto) 8.9, Eos % (Auto) 1.0, Baso % (Auto) 0.6, Absolute Neuts (auto) 9.3 H, Absolute Lymphs (auto) 4.47, Nucleated RBC % 0 04/02/22 12:40: Sodium 136, Potassium 6.3 H*, Chloride 105, Carbon Dioxide 16.0 L, Anion Gap 15, BUN 13, Creatinine 1.89 H, Estim Creat Clear Calc 46.76, Est GFR (MDRD) Af Amer 49 L, Est GFR (MDRD) Non-Af 40 L, BUN/Creatinine Ratio 6.9 L, Glucose 306 H, Calcium 9.5, Troponin I High Sens 7 04/02/22 15:35: Sodium 139, Potassium 4.0, Chloride 110 H, Carbon Dioxide 20.0 L , Anion Gap 9, BUN 15, Creatinine 2.07 H, Estim Creat Clear Calc 41.30, Est GFR (MDRD) Af Amer 44 L, Est GFR (MDRD) Non-Af 36 L, BUN/Creatinine Ratio 7.2 L, Glucose 109 H, Calcium 10.6 H 04/02/22 15:35: Troponin I High Sens 19 Radiology Impression Chest X-Ray 04/02/22 13:00 IMPRESSION: Borderline cardiomegaly. The lungs are clear. Electronically Signed: Kevin Ledesma MD at 13:17 EDT , Echocardiogram 04/02/22 13:50 Interpretation Summary Normal LV size. Left ventricular systolic function is normal. The estimated ejection fraction is 60 %. No pericardial effusion. 3 sequential echos perfomred with no change in status Ordering Physician: Jonathan Samuel Referring Physician: Gunjan Romano Performed By: Do Pugh, STANLEY, RVT Assessment & Plan Assessment/Plan (1) High-grade atrioventricular block: PLAN: Plan 1. High-grade AV block-probably secondary to rate limiting medication usage at home (blood pressure medication)-again patient was admitted to ICU, he will be observed closely, cardiology is participating in his care. #2 essential hypertension-patient's medications will most likely have to be adjusted upon his discharge from the hospital, they will be held at this time #3 panic disorder-patient is on Klonopin chronically, this will be continued #4 degenerative disc disease of the lumbar spine-Tylenol will be ordered for pain #5 hyperlipidemia-patient is currently on Crestor at home as well as another medication which she is not sure of, he can resume these medications when he is discharged from the hospital #6 chronic excessive alcohol intake-patient is a daily drinker, he was somewhat vague about the number of drinks that he drinks on a daily basis, he indicated to me that it was at least 6 beers per day. Patient will be placed on CIWA protocol. Patient denies any history of alcohol withdrawal. #7 history of gout-patient's Zyloprim will be held during his hospitalization #8 chronic kidney disease stage IIIb-secondary to chronic hypertension, patient most likely will have to resume an ALAYNA or an ARB sometime in the near future after his discharge from the hospital #9 hyperkalemia-patient was given IV insulin and IV dextrose shortly after his cardiac catheterization, labs will be monitored Charges/Coding Visit Charges Inpatient E&M: 49046 Init Hosp L3
[2022-04-02] MEDS: clonazePAM 1 MG Tablet PO (21:20)
[2022-04-02] MEDS: hydrOXYzine PAM 25 MG Capsule 50 MG PO (23:12)
[2022-04-03] VITALS (32 sets, daily range): BP systolic 115–186; BP diastolic 66–112; PULSE 58–84; RESP 13–22; TEMP 35.8–36.9; O2SAT 92–100
[2022-04-03] MEDS: 0.9% Normal Saline 1,000 ML 100 ML IV (04:22)
[2022-04-03 05:08] LABS: Anion Gap 7 (5-15); BUN 10 mg/dL (7-18); BUN/Creat Ratio 10.3 RATIO (10-20); Calcium,Total 8.9 mg/dL (8.5-10.1); Chloride 108 mmol/L (98-107); Creatinine, Serum 0.97 mg/dL (0.70-1.30); EST Glomerular Filtration Rate 87 mL/min (>60); Est Glom Filt Rate - Afr Amer 105 mL/min (>60); Estimated Creatinine Clearance 88.14 ml/min; Glucose 100 mg/dL (74-106); Potassium 3.9 mmol/L (3.5-5.1); Sodium Level 138 mmol/L (136-145)
--- NOTE | 2022-04-03 07:20 | NURSING ---
dr valentine present removed temp pacer wires, sheath remain inplace, ekg completed
--- NOTE | 2022-04-03 07:37 | PN.CARD_ITS ---
Subjective Subjective The patient was seen and evaluated this morning. He did well overnight. Hardly any pacemaker activity noted. Objective Data Vital Signs: Vital Signs Temp Pulse Resp BP Pulse Ox O2 Del Method O2 Flow Rate 98.2 F 65 14 150/77 H 97 Nasal Cannula 5 04/03/22 05:00 04/03/22 07:00 04/03/22 07:00 04/03/22 07:00 04/03/22 07:00 04/03/22 07:00 04/03/22 07:00 Oxygen Flow Rate (L/min) 5 Oxygen Delivery Method Nasal Cannula Weight: 199 lb 15.348 oz Body Mass Index (BMI) 30.1 Intake & Output: Intake and Output for Last 24 Hours 04/01/22 04/02/22 04/03/22 23:59 23:59 23:59 Intake Total 305.16 / 405.16 1300 / 1300 Output Total 650 / 650 700 / 700 Balance -344.84 / -244.84 600 / 600 Lab / Micro Data Result Diagrams: 04/02/22 12:40 04/03/22 04:30 Labs: Laboratory Results - last 24 hr 04/02/22 12:40: WBC 15.5 H, RBC 4.67, Hgb 15.7, Hct 44.6, MCV 95.5 H, MCH 33.6 H , MCHC 35.2, RDW Std Deviation 46.5 H, RDW Coeff of Albert 13.2, Plt Count 348, MPV 10.2, Immature Gran % (Auto) 0.500, Neut % (Auto) 60.1, Lymph % (Auto) 28.9, Power % (Auto) 8.9, Eos % (Auto) 1.0, Baso % (Auto) 0.6, Absolute Neuts (auto) 9.3 H, Absolute Lymphs (auto) 4.47, Nucleated RBC % 0 04/02/22 12:40: Sodium 136, Potassium 6.3 H*, Chloride 105, Carbon Dioxide 16.0 L, Anion Gap 15, BUN 13, Creatinine 1.89 H, Estim Creat Clear Calc 46.76, Est GFR (MDRD) Af Amer 49 L, Est GFR (MDRD) Non-Af 40 L, BUN/Creatinine Ratio 6.9 L, Glucose 306 H, Calcium 9.5, Troponin I High Sens 7 04/02/22 15:35: Sodium 139, Potassium 4.0, Chloride 110 H, Carbon Dioxide 20.0 L , Anion Gap 9, BUN 15, Creatinine 2.07 H, Estim Creat Clear Calc 41.30, Est GFR (MDRD) Af Amer 44 L, Est GFR (MDRD) Non-Af 36 L, BUN/Creatinine Ratio 7.2 L, Glucose 109 H, Calcium 10.6 H 04/02/22 15:35: Troponin I High Sens 19 04/03/22 04:30: Sodium 138, Potassium 3.9, Chloride 108 H, Carbon Dioxide 23.0, Anion Gap 7, BUN 10, Creatinine 0.97, Estim Creat Clear Calc 88.14, Est GFR (MDRD) Af Amer 105, Est GFR (MDRD) Non-Af 87, BUN/Creatinine Ratio 10.3, Glucose 100, Calcium 8.9 Cardiology Labs/Tests 04/02/22 12:40: WBC 15.5 H, RBC 4.67, Hgb 15.7, Hct 44.6, MCV 95.5 H, MCH 33.6 H , MCHC 35.2, Plt Count 348, MPV 10.2, Immature Gran % (Auto) 0.500, Neut % (Auto) 60.1, Lymph % (Auto) 28.9, Power % (Auto) 8.9, Eos % (Auto) 1.0, Baso % (Auto) 0.6, Absolute Neuts (auto) 9.3 H, Nucleated RBC % 0 04/02/22 12:40: Sodium 136, Potassium 6.3 H*, Chloride 105, Carbon Dioxide 16.0 L, Anion Gap 15, BUN 13, Creatinine 1.89 H, Est GFR (MDRD) Af Amer 49 L, Est GFR (MDRD) Non-Af 40 L, BUN/Creatinine Ratio 6.9 L, Glucose 306 H, Calcium 9.5 04/02/22 15:35: Sodium 139, Potassium 4.0, Chloride 110 H, Carbon Dioxide 20.0 L , Anion Gap 9, BUN 15, Creatinine 2.07 H, Est GFR (MDRD) Af Amer 44 L, Est GFR (MDRD) Non-Af 36 L, BUN/Creatinine Ratio 7.2 L, Glucose 109 H, Calcium 10.6 H 04/03/22 04:30: Sodium 138, Potassium 3.9, Chloride 108 H, Carbon Dioxide 23.0, Anion Gap 7, BUN 10, Creatinine 0.97, Est GFR (MDRD) Af Amer 105, Est GFR (MDRD) Non-Af 87, BUN/Creatinine Ratio 10.3, Glucose 100, Calcium 8.9 Rhythm: EKG: ECHO: Stress Test: Cardiac Cath: PCI: CT Surgery: Holter monitor: EPS: PPM: CXR: Chest CT Scan: Radiography Diagnostic Testing: Radiology Impression Chest X-Ray 04/02/22 13:00 IMPRESSION: Borderline cardiomegaly. The lungs are clear. Electronically Signed: Kevin Ledesma MD at 13:17 EDT , Echocardiogram 04/02/22 13:50 Interpretation Summary Normal LV size. Left ventricular systolic function is normal. The estimated ejection fraction is 60 %. No pericardial effusion. 3 sequential echos perfomred with no change in status Ordering Physician: Jonathan Samuel Referring Physician: Gunjan Romano Performed By: Do Pugh, STANLEY, RVT Physical Exam Narrative At the time of my examination in the ICU, patient is no longer paced, heart rate approximately 58 Const alert, oriented x3, no apparent distress, average body habitus and healthy appearing General Appearance: cooperative, well kempt and well developed Orientation / Consciousness: awake, oriented to person, oriented to place and oriented to time HEENT normocephalic, head/scalp atraumatic, hearing grossly normal bilaterally and moist oral mucous membranes Eyes PERRL, EOMs intact bilaterally and conjunctivae normal Neck supple, no JVD, thyroid normal and no carotid bruits General: trachea midline Resp normal respiratory effort, no retractions, no use of accessory muscles and clear to auscultation bilaterally Auscultation: Negative for rales, rhonchi or wheezes Cardio regular rate, regular rhythm, S1 normal heart sound, S2 normal heart sound, no murmurs, no rub and no gallops GI normal to inspection, nondistended, normoactive bowel sounds, soft to palpation, non-tender and non-distended Extremity no clubbing, cyanosis or edema Skin no rashes or lesions noted General Skin Exam: no breakdown Neuro oriented x3, CN's II-XII intact bilaterally, moves all extremities, no focal motor deficits and no sensory deficits noted Sensorium / Orientation: awake, alert, oriented to person, oriented to place and oriented to time Speech: speech normal Psych affect normal Assessment & Plan Assessment/Plan (1) High-grade atrioventricular block: PLAN: Status post high-grade AV block secondary to medication. Echocardiogram demonstrated preserved left ventricular systolic function. * The temporary pacemaker was removed this morning without any complications. Hemodynamics appear to be stable. * Will observe patient over the next few hours and then transition to the progressive care unit. (2) HTN (hypertension): QUALIFIERS: Hypertension type: essential hypertension Qualified Code(s): I10 - Essential (primary) hypertension PLAN: His blood pressure is somewhat elevated. Would permit hypertension for now and likely start him on a calcium channel valerie such as amlodipine or an ALAYNA or an ARB. Thank you for allowing me to participate in the care of your patient. Please don't hesitate to call if any issues arise.
--- NOTE | 2022-04-03 07:37 | EKG12_ITS ---
Test Reason : POST HB Blood Pressure : / mmHG Vent. Rate : 065 BPM Atrial Rate : 065 BPM P-R Int : 178 ms QRS Dur : 098 ms QT Int : 452 ms P-R-T Axes : 044 052 047 degrees QTc Int : 470 ms Normal sinus rhythm Normal ECG Confirmed by JENNIE SAWYER, JUAN ([id number]), sound editor ISADORA MUNOZ ([id number]) on 04/07/2022 10:33:48 AM Referred By: MARU BROWN Confirmed By:JUAN SCHNEIDER MD
--- NOTE | 2022-04-03 07:42 | PCM.PN.HOSP ---
Subjective Subjective Follow-up on acute symptomatic bradycardia: Patient was seen and examined. Patient denied any chest pain or dizziness. His temporary pacemaker wire removed this morning. Sheath remains in pending removal. Objective Data Objective Data Vital Signs: Vital Signs Temp Pulse Resp BP Pulse Ox O2 Del Method O2 Flow Rate 98.2 F 65 14 150/77 H 97 Nasal Cannula 5 04/03/22 05:00 04/03/22 07:00 04/03/22 07:00 04/03/22 07:00 04/03/22 07:00 04/03/22 07:00 04/03/22 07:00 Oxygen Flow Rate (L/min) 5 Oxygen Delivery Method Nasal Cannula Weight: 90.7 kg Body Mass Index (BMI) 30.1 Intake & Output: Intake and Output for Last 24 Hours 04/01/22 04/02/22 04/03/22 23:59 23:59 23:59 Intake Total 305.16 / 405.16 1300 / 1300 Output Total 650 / 650 700 / 700 Balance -344.84 / -244.84 600 / 600 Lab / Micro Data Result Diagrams: 04/02/22 12:40 04/03/22 04:30 Labs: Laboratory Results - last 24 hr 04/02/22 12:40: WBC 15.5 H, RBC 4.67, Hgb 15.7, Hct 44.6, MCV 95.5 H, MCH 33.6 H, MCHC 35.2, RDW Std Deviation 46.5 H, RDW Coeff of Albert 13.2, Plt Count 348, MPV 10.2, Immature Gran % (Auto) 0.500, Neut % (Auto) 60.1, Lymph % (Auto) 28.9, [place] % (Auto) 8.9, Eos % (Auto) 1.0, Baso % (Auto) 0.6, Absolute Neuts (auto) 9.3 H, Absolute Lymphs (auto) 4.47, Nucleated RBC % 0 04/02/22 12:40: Sodium 136, Potassium 6.3 H*, Chloride 105, Carbon Dioxide 16.0 L, Anion Gap 15, BUN 13, Creatinine 1.89 H, Estim Creat Clear Calc 46.76, Est GFR (MDRD) Af Amer 49 L, Est GFR (MDRD) Non-Af 40 L, BUN/Creatinine Ratio 6.9 L, Glucose 306 H, Calcium 9.5, Troponin I High Sens 7 04/02/22 15:35: Sodium 139, Potassium 4.0, Chloride 110 H, Carbon Dioxide 20.0 L, Anion Gap 9, BUN 15, Creatinine 2.07 H, Estim Creat Clear Calc 41.30, Est GFR (MDRD) Af Amer 44 L, Est GFR (MDRD) Non-Af 36 L, BUN/Creatinine Ratio 7.2 L, Glucose 109 H, Calcium 10.6 H 04/02/22 15:35: Troponin I High Sens 19 04/03/22 04:30: Sodium 138, Potassium 3.9, Chloride 108 H, Carbon Dioxide 23.0, Anion Gap 7, BUN 10, Creatinine 0.97, Estim Creat Clear Calc 88.14, Est GFR (MDRD) Af Amer 105, Est GFR (MDRD) Non-Af 87, BUN/Creatinine Ratio 10.3, Glucose 100, Calcium 8.9 Radiography Diagnostic Testing: Radiology Impression Chest X-Ray 04/02/22 13:00 IMPRESSION: Borderline cardiomegaly. The lungs are clear. Electronically Signed: Kevin Ledesma MD at 13:17 EDT , Echocardiogram 04/02/22 13:50 Interpretation Summary Normal LV size. Left ventricular systolic function is normal. The estimated ejection fraction is 60 %. No pericardial effusion. 3 sequential echos perfomred with no change in status Ordering Physician: Jonathan Samuel Referring Physician: Gunjan Romano Performed By: Do Pugh, RDCS, RVT Physical Exam Narrative Physical exam: General: Alert, Oriented x3, Cooperative, No apparent distress HEENT: Atraumatic Oral: Moist Mucosa Neck: Supple Lungs: Clear to auscultation Cardiovascular: HS I+II, regular, no murmurs Abdomen: Bowel Sounds Present, Soft, Non Tender, right groin sheath Extremities: No edema Skin: No rashes, No breakdown Neurological: Grossly intact Psych/Mental Status: Appropriate Assessment & Plan Assessment/Plan (1) High-grade atrioventricular block: (2) Symptomatic bradycardia: PLAN: Plan 1. Acute symptomatic bradycardia, high-grade block secondary to multiple blood pressure medications, improved Status post temporary pacemaker placement and. No events overnight. Heart rate is improved; in the 60s Cardiology following, follow-up on recommendations 2. Hypertension, slightly elevated, continue to monitor May add hydralazine as needed for persistently elevated BP 3. Hyperkalemia, resolved, continue to monitor 4. Anxiety disorder/panic disorder, continue on Klonopin 5. Hyperlipidemia, continue statin 6. Chronic alcohol abuse, no signs of acute alcohol withdrawal, CIWA score is 0 Will d/c CIWA 7. DVT PPx- Heparin SC Charges/Coding Visit Charges Inpatient E&M: 11198 Subs Hosp L2
[2022-04-03] MEDS: clonazePAM 1 MG Tablet PO ×2 (09:58→21:08)
--- NOTE | 2022-04-03 11:45 | CASEMGMT ---
RN CM Face to Face with patient for initial transition planning/care coordination assessment. RN CM introduced self and role at [facility]. Patient lying in bed, alert and oriented. Patient willing to participate in assessment and is able to answer all questions appropriately. Care providers, pharmacy, and demographics verified. Patient wishes to discharge home, denies need for home health at this time. Patient states he has no further needs or concerns at this time. CM to follow for discharge planning needs that may arise. PCP: Juan Antonio Specialists: none Preferred Pharmacy: [facility] at discharge Insurance: [employer] for Me Prescription Benefit: yes Living Will/HPOA: none, interested in completing, SW updated LNOK: , daughter Living Arrangements: patient lives alone in a second floor apartment. Patient states he is independent at home. Transportation: self, christianity friends DME/HHC: Patient has cane, crutches, BP cuff at home. No previous HHC or SNF. Disposition Plan: Patient to discharge home with family support and follow-up plans in place. Meredith TANNER, RN, CM
[2022-04-03] MEDS: Acetaminophen 325 MG Tablet 650 MG PO (12:28)
[2022-04-03] MEDS: amLODIPine 10 MG Tablet PO (13:19)
[2022-04-03] MEDS: hydroCHLOROthiazide 25 MG Tablet PO (14:08)
--- NOTE | 2022-04-03 15:56 | CHAPLAIN ---
Type of Pastoral Visit _x__ Initial Visit ___ Follow-up Visit ___ On-call Visit ___ General Patient Visit ___ Spiritual Assessment ___ Family Conference ___ Bereavement ___ Rapid Response ___ Code Blue ___ Other (describe below) Pastoral Care Referral From _x__ Patient ___ Family ___ Nurse ___ Physician ___ Convex Grinder ___ Gis Manager ___ Other (describe below) Sacrament/Intervention _x__ Active listening ___ Anointing ___ Oriental Orthodox ___ Bereavement ___ Communion _x__ Zina exploration ___ _x__ Life review _x__ Prayer ___ Reconciliation ___ Sacrament of Sick _x__ Supportive presence ___ Wedding ___ Other (describe below) Pastoral Comments patient is an community acquaintance of this parent coach and pt welcomes presence and support for spiritual and emotional care; pt had unexpected episode with his heart and in conversation he reveals many stressors in his life to this parent coach; pt has grief issues with recent family deaths, family relationship concerns, and professional disappointments that are adding up on his mental health; pt states that he knows he needs more support for his mental health and plans to contact a counseling center that is known to him; much time given in this encounter for patient to unload his burdens and feelings; pt has knowledge of what he needs in personal support and agrees that he must follow up on personal care; pt affirms that his zina is strong and that he does rely on his relationship with God for support; pt also admits to having very small family and few people that he can count on for help; this is area he will seek to have greater input; pt welcomes prayer; pt expresses thanks for the time and attention given to him on this visit
[2022-04-03] MEDS: Lisinopril 20 MG Tablet PO (21:08)
[2022-04-03] MEDS: Heparin Injection (Vial) 5,000 UNIT/ML VIAL 5000 UNIT SC (21:08)
[2022-04-03] MEDS: hydrOXYzine PAM 25 MG Capsule 50 MG PO (23:01)
[2022-04-04] VITALS (15 sets, daily range): BP systolic 111–175; BP diastolic 69–111; PULSE 71–124; RESP 15–22; TEMP 35.8–36.7; O2SAT 90–97
[2022-04-04] MEDS: Acetaminophen 325 MG Tablet 650 MG PO (00:09)
[2022-04-04] MEDS: hydroCHLOROthiazide 25 MG Tablet PO (08:24)
[2022-04-04] MEDS: Heparin Injection (Vial) 5,000 UNIT/ML VIAL 5000 UNIT SC (08:24)
[2022-04-04] MEDS: Lisinopril 20 MG Tablet PO (08:24)
[2022-04-04] MEDS: clonazePAM 1 MG Tablet PO (08:28)
[2022-04-04] MEDS: NIFEdipine 90 MG Tablet PO (09:27)
--- NOTE | 2022-04-04 09:43 | PCM.DC.SUM ---
Providers Date of Admission: 04/02/22 Date of Discharge: 04/04/22 Primary Care Physician: Dr. Gunjan Romano MD Reason For Visit: SYMPTOMATIC BRADYCARDIA Diagnosis Discharge Diagnosis (1) High-grade atrioventricular block: Status: Acute Code(s): I44.39 - Other atrioventricular block (2) Symptomatic bradycardia: Status: Acute Code(s): R00.1 - Bradycardia, unspecified Plan 1. Acute symptomatic bradycardia 2. Hypertension 3. Hyperkalemia 4. Anxiety disorder/panic disorder 5. Hyperlipidemia 6. Chronic alcohol abuse Medications at Discharge Home Medications clonazepam 1 mg tablet 0.5 mg PO BID anxiety 07/26/19 gabapentin 100 mg capsule 100 mg PO QHS PRN low back pain #30 caps 03/17/22 indomethacin 25 mg capsule 25 mg PO TID PRN Gout #60 caps 03/17/22 rosuvastatin 40 mg tablet 40 mg PO DAILY #90 tabs 03/17/22 allopurinol 100 mg tablet 100 mg PO DAILY #90 tabs 03/27/22 hydrochlorothiazide 25 mg tablet 25 mg PO DAILY blood pressure 04/02/22 hydroxyzine pamoate 25 mg capsule 25 - 50 mg PO QHS PRN sleep aid 04/02/22 lisinopril 20 mg tablet 20 mg PO BID 30 days #60 tabs 04/04/22 nifedipine 90 mg tablet,extended release 90 mg PO DAILY 30 days #30 tabs 04/04/22 Hospital Course Operations None Procedures None Summary of Care Provided Minutes Spent on Discharge: 35 Hospital Course: 51-year-old male with past medical history of hypertension who comes in with complaints of lightheadedness and generalized weakness. This has been ongoing for some days. It was worse on the day of admission. Patient was on Tenex, Cardizem, and propranolol. He called the EMS and his heart rate was in 20s. EKG and work-up in the ED showed high-grade AV block with periods of asystole. Patient received 1 dose of epinephrine and atropine. Heart rate was elevated to the 40s. Cardiology was consulted. Patient was taken emergently to the cardiac [facility] Manager and underwent implantation of a temporary pacemaker. Patient was managed in the ICU and monitored with no acute events. He had a temporary pacemaker removed the next day. He subsequently had his sheath removed. He continues to be asymptomatic. Heart rate appears improved. Patient was resumed on his lisinopril and hydrochlorothiazide. Procardia was added. He will follow-up with his primary care doctor and with cardiology within 2 weeks. On the day of discharge, he complained of acute exacerbation of his chronic back pain. He has history of discitis, status post lumbar surgery. He was given 1 dose of oxycodone and Lidoderm patches. He was encouraged to follow-up with his PCP. Physical Exam Narrative Physical exam: General: Alert, Oriented x3, Cooperative, No apparent distress HEENT: Atraumatic Oral: Moist Mucosa Neck: Supple Lungs: Clear to auscultation Cardiovascular: HS I+II, regular, no murmurs Abdomen: Bowel Sounds Present, Soft, Non Tender, right groin sheath Extremities: No edema Skin: No rashes, No breakdown Neurological: Grossly intact Psych/Mental Status: Appropriate Weight / BMI Weight Weight: 88.5 kg Body Mass Index (BMI) 30.1 ABG / Lab / Microbiology Data Result Diagrams: 04/02/22 12:40 04/03/22 04:30 D/C Instructions Discharge Diet: Low fat / Low cholesterol and 2000 mg Sodium Diet Meaningful Use Info Meaningful Use Diagnoses (Choose all that apply): None applicable Discharge Plan Admission Admit Date/Time: 04/02/22 14:56 Primary Reason for Your Visit: Acute symptomatic bradycardia Attending Provider: Bisi Galvaiz Primary Care Provider: Gunjan Romano Consulting Providers: Ivan Baez Instructions Additional Instructions / Restrictions: Take note of changes to your medications Follow-up with your primary care and cardiology within 1-2 weeks. Discharge Orders/Prescriptions Prescriptions: New lisinopril 20 mg Tablet 20 mg PO BID 30 Days Qty: 60 0RF nifedipine 90 mg Tablet Extended Release 90 mg PO DAILY 30 Days Qty: 30 0RF Continued clonazepam 1 mg tablet 0.5 mg PO BID gabapentin 100 mg capsule 100 mg PO QHS PRN (Reason: low back pain) Qty: 30 1RF indomethacin 25 mg capsule 25 mg PO TID PRN (Reason: Gout) Qty: 60 1RF Rx Instructions: administer with food or milk do not take with ibuprofen or other NSAID rosuvastatin 40 mg tablet 40 mg PO DAILY Qty: 90 3RF hydrochlorothiazide 25 mg tablet 25 mg PO DAILY hydroxyzine pamoate 25 mg capsule 25 - 50 mg PO QHS PRN (Reason: sleep aid) allopurinol 100 mg tablet 100 mg PO DAILY Qty: 90 3RF Discontinued lisinopril 40 mg tablet 40 mg PO BID Qty: 180 3RF propranolol 60 mg tablet 60 mg PO BID guanfacine 1 mg tablet 1 mg PO TID diltiazem HCl 360 mg capsule,extended release 24 hr 360 mg PO DAILY Referrals / Follow Up: Jonathan Samuel MD [Med Staff - Active Staff] - Within 2 Weeks Gunjan Romano MD [Primary Care Provider] - Disposition Disposition (needs filled in before D/C Order can be placed): Home, Self Care Charges/Coding Visit Charges Inpatient E&M: 83739 Disch Hosp
[2022-04-04] MEDS: oxyCODONE 5 MG Tablet PO (10:35)
[2022-04-04] MEDS: Lidocaine 5% Patch 2 PATCH TOPICAL (10:35)
--- NOTE | 2022-04-04 12:00 | CHAPLAIN ---
Type of Pastoral Visit ___ Initial Visit _x__ Follow-up Visit ___ On-call Visit ___ General Patient Visit ___ Spiritual Assessment ___ Family Conference ___ Bereavement ___ Rapid Response ___ Code Blue ___ Other (describe below) Pastoral Care Referral From _x__ Patient ___ Family ___ Nurse ___ Physician ___ Wood Crew Supervisor ___ Lpn Rn ___ Other (describe below) Sacrament/Intervention _x__ Active listening ___ Anointing ___ Muslim ___ Bereavement ___ Communion _x__ Zina exploration ___ ___ Life review _x__ Prayer ___ Reconciliation ___ Sacrament of Sick _x__ Supportive presence ___ Wedding ___ Other (describe below) Pastoral Comments patient reviews some further stressors of his current life situation; pt acknowledges frustrations in his life; pt affirms that he is giving thought to some resolution of issues; pt acknowledges that his jehovah's witness has offered some support at this time; pt welcomes prayer and expresses gratitude for the spiritual care and service to him at this time
--- NOTE | 2022-04-04 14:03 | CASEMGMT ---
Social Work SW met with pt and assisted in completing HCPOA. Pt naming his Josette Mustafa as HCPOA. Pt states that Josette is currently his but they are going through a dissolution. Pt states that after the dissolution Josette will continue to be his HCPOA and that she is agreeable to this. Pt did not wish to complete a living will at this time. COLBY provided pt with a copy of LW paperwork and Advance Directive Rac Card to take home. Orginal HCPOA given to pt and copy placed on chart. TIAGO Albrecht
== END 2022-04-04 14:20 | disposition home or self-care (01) | DRG 261 ==
LOC: ED 13:18 → ICU 13:44
PROVIDERS: Internal Medicine Cardiovascular Disease; Admitting Provider Internal Medicine; Emergency Provider Emergency Medicine; PCP Internal Medicine; Visit Provider Internal Medicine
DX: I44.2 Atrioventricular block, complete (principal); N17.9 Acute kidney failure, unspecified; N18.32 Chronic kidney disease, stage 3b; E78.00 Pure hypercholesterolemia, unspecified; E78.1 Pure hyperglyceridemia; M10.9 Gout, unspecified; I12.9 Hypertensive chronic kidney disease with stage 1 through stage 4 chronic kidney disease, or unspecified chronic kidney disease; F17.290 Nicotine dependence, other tobacco product, uncomplicated; F10.10 Alcohol abuse, uncomplicated; E87.5 Hyperkalemia; M51.36 Other intervertebral disc degeneration, lumbar region; G89.29 Other chronic pain; F43.10 Post-traumatic stress disorder, unspecified; F41.1 Generalized anxiety disorder; Z79.899 Other long term (current) drug therapy; F41.0 Panic disorder [episodic paroxysmal anxiety]
CPT/HCPCS: 33210; 71045; 80048; 84484; 85025; 93005; 93308; 99251; 99285; 99406; J7030; A4216; C1894; G0463; J2405

== ENCOUNTER → 2022-04-09 | Outpatient (CLI) | payer OTHER, SELFPAY ==
[2022-04-09 12:44] LABS: Absolute Neutrophil Count 5.5 X10^3/uL (2.0-7.7); Basophil# 0.07 X10^3/uL; Basophil% 0.8 % (0-1); Eosinophil# 0.19 X10^3/uL; Hematocrit 47.1 % (40-54); Hemoglobin 16.3 g/dL (13.0-16.5); Lymphocyte % 23.7 % (19-41); Mean Corp Hgb Conc 34.6 g/dL (32-36); Mean Corpuscular Hgb 32.6 pg (27.0-32.0); Mean Corpuscular Volume 94.2 fL (80-94); NRBC Flagged by Analyzer 0 % (0-5); Neutrophil # 5.49 X10^3/uL (2.7-7.7); Neutrophil % 59.1 % (47-70); Platelet Count 397 K/mm3 (150-450); RBC Distribution Width CV 12.6 % (11.6-14.6); RBC Distribution Width SD 43.1 fl (35.1-43.9); White Blood Count 9.3 K/mm3 (4.4-11.0)
[2022-04-09 13:01] LABS: ALB/GLOB Ratio 0.7 RATIO (0.9-2.4); AST(SGOT) 39 U/L (15-37); Alanine Aminotransfer ALT/SGPT 53 U/L (16-61); Albumin, Serum 3.7 g/dL (3.2-5.0); Alkaline Phosphatase 100 U/L (45-117); Anion Gap 10 (5-15); BUN 20 mg/dL (7-18); BUN/Creat Ratio 17.1 RATIO (10-20); Calcium,Total 10.5 mg/dL (8.5-10.1); Chloride 102 mmol/L (98-107); Cholesterol 256 mg/dL (200); Creatinine, Serum 1.17 mg/dL (0.70-1.30); EST Glomerular Filtration Rate 70 mL/min (>60); Est Glom Filt Rate - Afr Amer 85 mL/min (>60); Globulin 5.2 g/dL (2.2-4.2); Glucose 122 mg/dL (74-106); High Density Lipoprotein 27 mg/dL; Potassium 4.3 mmol/L (3.5-5.1); Protein, Total 8.9 g/dL (6.4-8.2); Sodium Level 137 mmol/L (136-145); Triglycerides 477 mg/dL
[2022-04-09 13:04] LABS: BNP,B-Type NATRIURETIC PEPTIDE 11.6 pg/mL (0-100)
[2022-04-09 13:49] LABS: T4 Free Direct 1.14 ng/dL (0.76-1.46); Thyroid Stim Hormone (TSH) 1.09 uIU/mL (0.358-3.74)
== END | disposition home or self-care (01) ==
LOC: BIMLAB 10:37
PROVIDERS: Nurse Practitioner Family; PCP Internal Medicine; Referring Provider Physician Assistant; Visit Provider Physician Assistant
DX: Z00.00 Encounter for general adult medical examination without abnormal findings (principal); I10 Essential (primary) hypertension; E78.5 Hyperlipidemia, unspecified; R00.1 Bradycardia, unspecified; I44.39 Other atrioventricular block; F41.1 Generalized anxiety disorder
CPT/HCPCS: 36415; 80053; 80061; 83880; 84439; 84443; 85025